=== PATIENT | male | born 1980 | race Caucasian/White ===

== ENCOUNTER 2017-01-24 10:39 | Emergency (ER) | payer OTHER ==
[~2017-01-24] VITALS: Ht 182.9 cm; Wt 80.0 kg
[~2017-01-24 10:39] MED LIST: ADDE15TA PO; CLOB0.055 TOPICAL; MILK140C PO; MULT-65 PO
[2017-01-24 10:52] VITALS: BP 146/73; PULSE 78; RESP 20; TEMP 98.3; O2SAT 99
--- NOTE | 2017-01-24 11:09 | PD ---
HPI Chief Complaint: Psychiatric Symptoms Time Seen by Provider: 10:58 Travel History International Travel<30 days: No Contact w/Intl Traveler<30days: No Traveled to known affect area: No History of Present Illness HPI 36-year-old male presents to the emergency Department under Ac[place]idy act I police for psychiatric evaluation. The patient states he called José Miguel was getting along with the girl he was talking to. He started talking about suicide to her. Apparently, according to the Cassidy act, he told her he was going to hang himself. The patient states that he always states he is going to kill himself. He apparently has told the nurse and the police that he is [place] and related to Alek. The patient denies any current suicidal or homicidal ideation to me. Patient denies any chronic medical problems or taking prescribed medications. He does state that he drank alcohol last night and a couple of glasses of champagne this morning. He does smoke cigarettes. He denies any illicit drug use. Patient is alert and oriented to person, place , time. He has no medical complaints at this time. [facility] Social History Alcohol Use: Yes Tobacco Use: Yes Substance Use: No Allergies-Medications (Allergen,Severity, Reaction): Coded Allergies: No Known Allergies (Unverified , 10/10/16) Reported Meds & Prescriptions Reported Meds & Active Scripts Active Review of Systems Except as stated in HPI: all other systems reviewed are Neg Physical Exam Narrative GENERAL: Well-nourished, well-developed male patient, afebrile. SKIN: Focused skin assessment warm/dry. HEAD: Normocephalic. Atraumatic. EYES: No scleral icterus. No injection or drainage. NECK: Supple, trachea midline. No JVD or lymphadenopathy. CARDIOVASCULAR: Regular rate and rhythm without murmurs, gallops, or rubs. RESPIRATORY: Breath sounds equal bilaterally. No accessory muscle use. Lungs sounds are clear to auscultation. GASTROINTESTINAL: Abdomen soft, non-tender, nondistended. MUSCULOSKELETAL: No cyanosis, or edema. PSYCHIATRIC: No delusional thought processes. No hallucinations. Data Data Last Documented VS Vital Signs Date Time Temp Pulse Resp B/P (MAP) Pulse Ox O2 Delivery O2 Flow Rate FiO2 01/24/17 10:52 98.3 78 20 146/73 (97) 99 Orders Orders Complete Blood Count With Diff (01/24/17 11:09) Comprehensive Metabolic Panel (01/24/17 11:09) Psych Screen (01/24/17 11:09) Drug Screen, Random Urine (01/24/17 11:09) Alcohol (Ethanol) (01/24/17 11:09) Haloperidol Inj (Haldol Inj) (01/24/17 11:15) Lorazepam Inj (Ativan Inj) (01/24/17 11:15) Diet Regular Basic (01/24/17 Lunch) Labs Laboratory Tests Test 01/24/17 11:20 White Blood Count 5.8 TH/MM3 Red Blood Count 4.89 MIL/MM3 Hemoglobin 15.5 GM/DL Hematocrit 44.7 % Mean Corpuscular Volume 91.5 FL Mean Corpuscular Hemoglobin 31.7 PG Mean Corpuscular Hemoglobin Concent 34.6 % Red Cell Distribution Width 12.9 % Platelet Count 201 TH/MM3 Mean Platelet Volume 9.4 FL Neutrophils (%) (Auto) 64.4 % Lymphocytes (%) (Auto) 27.6 % Monocytes (%) (Auto) 6.9 % Eosinophils (%) (Auto) 0.6 % Basophils (%) (Auto) 0.5 % Neutrophils # (Auto) 3.7 TH/MM3 Lymphocytes # (Auto) 1.6 TH/MM3 Monocytes # (Auto) 0.4 TH/MM3 Eosinophils # (Auto) 0.0 TH/MM3 Basophils # (Auto) 0.0 TH/MM3 CBC Comment DIFF FINAL Differential Comment Blood Urea Nitrogen 7 MG/DL Creatinine 1.09 MG/DL Random Glucose 111 MG/DL Total Protein 8.2 GM/DL Albumin 4.4 GM/DL Calcium Level 8.4 MG/DL Alkaline Phosphatase 73 U/L Aspartate Amino Transf (AST/SGOT) 28 U/L Alanine Aminotransferase (ALT/SGPT) 36 U/L Total Bilirubin 0.3 MG/DL Sodium Level 138 MEQ/L Potassium Level 3.9 MEQ/L Chloride Level 101 MEQ/L Carbon Dioxide Level 27.1 MEQ/L Anion Gap 10 MEQ/L Estimat Glomerular Filtration Rate 76 ML/MIN Ethyl Alcohol Level 294 MG/DL [facility] Medical Decision Making Medical Screen Exam Complete: Yes Emergency Medical Condition: Yes Medical Record Reviewed: Yes Differential Diagnosis Medical clearance versus depression versus anxiety versus bipolar disorder versus sepsis abuse versus alcohol intoxication Narrative Course 36-year-old male presents to the emergency Department under Cassidy act by local police. CBC, CMP, alcohol level, urine drug screen are ordered and pending. Patient has become agitated the emergency department. He is given Haldol 5 mg IM. CBC is unremarkable. CMP shows no acute abnormality. Alcohol level is 294. UDS is pending. She is medically cleared for psychiatric screening and disposition. Mental health screening discussed with the patient. Psychiatric screen ordered. Diagnosis Primary Impression: Medical clearance for psychiatric admission Additional Instructions: Patient is medically cleared for psychiatric screening and disposition. Condition: Stable Sirisha Soria Jan 24, 2017 11:09
--- NOTE | 2017-01-24 11:14 | PD ---
Data Data Last Documented VS Vital Signs Date Time Temp Pulse Resp B/P (MAP) Pulse Ox O2 Delivery O2 Flow Rate FiO2 01/24/17 10:52 98.3 78 20 146/73 (97) 99 Orders Orders Complete Blood Count With Diff (01/24/17 11:09) Comprehensive Metabolic Panel (01/24/17 11:09) Psych Screen (01/24/17 11:09) Drug Screen, Random Urine (01/24/17 11:09) Alcohol (Ethanol) (01/24/17 11:09) MDM Supervised Visit with MARGARITO: Yes Narrative Course The history, exam, and medical decision-making in the associated midlevel provider note were completed with my assistance. I reviewed and agree with the findings presented. I attest that I had a [id number] encounter with the patient on the same day, and personally performed and documented my assessment and findings in the medical record. *My assessment and Findings: This is a 36-year-old male who presents to the emergency department under a Cassidy act because he was on the phone with [facility] and started to make suicidal statements to the telephone surveyor. Here in the emergency department he is intermittently but then has some some zoroastrian preoccupation saying that he's poornima Alek. I suspect that the patient has psychosis. He will be evaluated by psychiatry. Hallie Carter MD Jan 24, 2017 11:14
[2017-01-24] MEDS ORDERED: HALOPERIDOL LACTATE 5 MG/ML AMP IM ONE (11:15)
[2017-01-24] MEDS ORDERED: LORazepam 2 MG/ML VIAL IM ONE (11:15)
[2017-01-24 11:56] LABS: AUTOMATED NEUTROPHIL # 3.7 TH/MM3 (1.8-7.7); BASOPHIL % 0.5 % (0.0-2.0); EOSINOPHIL % 0.6 % (0.0-4.0); HEMATOCRIT 44.7 % (39.0-51.0); HEMO FLAGS DIFF FINAL; LYMPH % 27.6 % (9.0-44.0); LYMPHOCYTE # 1.6 TH/MM3 (1.0-4.8); MEAN CELL VOLUME 91.5 FL (80.0-100.0); MEAN CORPUSCULAR HEMOGLOBIN 31.7 PG (27.0-34.0); MEAN CORPUSCULAR HGB CONC 34.6 % (32.0-36.0); MONO % 6.9 % (0.0-8.0); NEUT % 64.4 % (16.0-70.0); PLATELET COUNT 201 TH/MM3 (150-450); RED BLOOD COUNT 4.89 MIL/MM3 (4.50-5.90); RED CELL DISTRIBUTION WIDTH 12.9 % (11.6-17.2); WHITE BLOOD COUNT 5.8 TH/MM3 (4.0-11.0)
[2017-01-24 12:20] LABS: ALKALINE PHOSPHATASE 73 U/L (45-117); TOTAL BILIRUBIN ADULT 0.3 MG/DL (0.2-1.0)
[2017-01-24 12:21] LABS: ALCOHOL 294 MG/DL (0-5)
[2017-01-24 12:29] LABS: ALT (GPT) 36 U/L (12-78); ANION GAP 10 MEQ/L (5-15); AST (GOT) 28 U/L (15-37); BICARBONATE 27.1 MEQ/L (21.0-32.0); BLOOD UREA NITROGEN 7 MG/DL (7-18); CHLORIDE 101 MEQ/L (98-107); GLOMERULAR FILTRATION RATE 76 ML/MIN (>89); POTASSIUM 3.9 MEQ/L (3.5-5.1); SODIUM (NA) 138 MEQ/L (136-145)
[2017-01-24 17:52] VITALS: BP 139/84; PULSE 100; RESP 18; O2SAT 96
[2017-01-24 22:53] VITALS: BP 135/99; PULSE 55; RESP 18; O2SAT 97
[2017-01-24] MEDS ORDERED: NICOTINE 14 MG/24 HR PATCH T-DERMAL ONE (23:30)
[2017-01-25 06:48] VITALS: BP 154/88; PULSE 80; RESP 18; O2SAT 98
--- NOTE | 2017-01-25 09:55 | PD ---
History of Present Illness Chief Complaint: Psychiatric Symptoms Time Seen by Provider: 09:40 Travel History International Travel<30 Days: No Contact w/Intl Traveler<30days: No Known affected area: No Legal Status Legal Status: Cassidy Act Cassidy Act Signed By: Teressa Oliver History of Present Illness: History of Present Illness HPI 36-year-old male with no previous psychiatric presents to the emergency Department under Cassidy act initiated by police for psychiatric evaluation for having expressed suicidal ideation in context of an argument with his girlfriend and while intoxicated. His BAl on admission to ED was 294. The patient states he called José Miguel and that while in a conversation with the charter representative he started talking about suicide to her.She called the police and he was placed under a BA. Patient seen. EMR reviewed, No previous contact with [facility]. He is a young male who appears stated age. He is clinically sober. Dressed in [facility] and maintaining basic hygiene. His speech is clear. There is no evidence of any psychosis, no iza and no suicdal or homicidal ideation. He states " There was a huge misunderstanding and I was drinking way too much. I have dealt with much worse things. It was an overreaction. Denies any suicidal or homicidal ideation, intent or plan. He does not present any objective clinical symptoms of depression. He denies that he drinks on a daily basis. Patient is also concerned over his cat who was taken to the [facility] when he was placed under the BA Telephone call to his parents with his consent at [phone]. Spoke with his mother. She has no concerns for his safety if he is discharged and will pick him up. Psychiatric History Psychiatric History Hx Psychiatric Treatment: DENIED any History of Inpatient Treatment: No Guns or firearms in home: No Social History Single male. Lives by him self. He works for [employer] Hx Alcohol Use: Yes Hx Tobacco Use: Yes Hx Substance Use: Yes Substance Use Type: Alcohol Other Substances Used: BINGING FOR 2 WEEKS AFTER 2 MONTHS SOBER Hx of Substance Use Treatment: No Family Psychiatric History denies any Allergies-Medications (Allergen,Severity, Reaction): Coded Allergies: No Known Allergies (Unverified , 10/10/16) Reported Meds & Prescriptions Reported Meds & Active Scripts Active Review of Systems Except as stated in HPI: all other systems reviewed are Neg Exam Alert: Yes [place]: Person (ox4) Mood: Calm Affect: Appropriate Speech: Clear, Logical Eye Contact: Normal Memory Intact: Comment (No impairmetn) Delusions: No Suicidal: Ideation (deneis any) Homicidal: Ideation (deneis any) Insight/Judgement Fair. Not impaired. MDM Medical Decision Making Medical Record Reviewed: Yes Assessment/Plan 36-year-old male with no previous psychiatric presents to the emergency Department under Cassidy act initiated by police for psychiatric evaluation for having expressed suicidal ideation in context of an argument with his girlfriend and while intoxicated. Patient at this time is clinically sober and does not present any psychosis, no iza and no objective clinical symptom of depression. He is future oriented and has adequate protective factors and adequate family support. The patient is requesting discharge and he does not meet criteria for BA. The BA is lifted and he is cleared for discharge from psychiatry. Orders Orders Complete Blood Count With Diff (01/24/17 11:09) Comprehensive Metabolic Panel (01/24/17 11:09) Psych Screen (01/24/17 11:09) Drug Screen, Random Urine (01/24/17 11:09) Alcohol (Ethanol) (01/24/17 11:09) Haloperidol Inj (Haldol Inj) (01/24/17 11:15) Lorazepam Inj (Ativan Inj) (01/24/17 11:15) Diet Regular Basic (01/24/17 Lunch) Diet Regular Basic (01/24/17 Dinner) Nicotine 14 Mg Patch.24 Hr (Habitrol 14 (01/24/17 23:30) Diet Regular Basic (01/25/17 Breakfast) Results Vital Signs Date Time Temp Pulse Resp B/P (MAP) Pulse Ox O2 Delivery O2 Flow Rate FiO2 01/25/17 06:48 80 18 154/88 (110) 98 01/24/17 22:53 55 18 135/99 (111) 97 01/24/17 17:52 100 18 139/84 (102) 96 Room Air 01/24/17 10:52 98.3 78 20 146/73 (97) 99 Laboratory Tests Test 01/24/17 11:20 01/24/17 19:10 White Blood Count 5.8 Red Blood Count 4.89 Hemoglobin 15.5 Hematocrit 44.7 Mean Corpuscular Volume 91.5 Mean Corpuscular Hemoglobin 31.7 Mean Corpuscular Hemoglobin Concent 34.6 Red Cell Distribution Width 12.9 Platelet Count 201 Mean Platelet Volume 9.4 Neutrophils (%) (Auto) 64.4 Lymphocytes (%) (Auto) 27.6 Monocytes (%) (Auto) 6.9 Eosinophils (%) (Auto) 0.6 Basophils (%) (Auto) 0.5 Neutrophils # (Auto) 3.7 Lymphocytes # (Auto) 1.6 Monocytes # (Auto) 0.4 Eosinophils # (Auto) 0.0 Basophils # (Auto) 0.0 CBC Comment DIFF FINAL Differential Comment Blood Urea Nitrogen 7 Creatinine 1.09 Random Glucose 111 Total Protein 8.2 Albumin 4.4 Calcium Level 8.4 Alkaline Phosphatase 73 Aspartate Amino Transf (AST/SGOT) 28 Alanine Aminotransferase (ALT/SGPT) 36 Total Bilirubin 0.3 Sodium Level 138 Potassium Level 3.9 Chloride Level 101 Carbon Dioxide Level 27.1 Anion Gap 10 Estimat Glomerular Filtration Rate 76 Ethyl Alcohol Level 294 Urine Opiates Screen NEG Urine Barbiturates Screen NEG Urine Amphetamines Screen NEG Urine Benzodiazepines Screen NEG Urine Cocaine Screen NEG Urine Cannabinoids Screen NEG Diagnosis Primary Impression: Alcohol intoxication Additional Impression: Adjustment disorder Psychiatrically Cleared: Yes Additional Instructions: Patient is medically cleared for psychiatric screening and disposition. Med/ Other Pt Specific Info: No Meds Exist/No RX given Disposition: 01 DISCHARGE HOME Condition: Stable Problem Qualifiers Kassandra Mchugh Jan 25, 2017 09:55
[2017-01-25 10:28] VITALS: BP 153/71; PULSE 81; RESP 18; O2SAT 98
--- NOTE | 2017-01-25 10:28 | PD ---
Physical Exam Time Seen by Provider: 10:24 Narrative I discussed the patient [id number] with ANASTASIA Cannon, who has evaluated the patient and lifted the Cassidy act. He has good family support and the mother is aware of the situation and has no concerns. The patient was intoxicated and is now clinically sober. The patient has no psych history, denies suicidal or homicidal ideations. Data Data Last Documented VS Vital Signs Date Time Temp Pulse Resp B/P (MAP) Pulse Ox O2 Delivery O2 Flow Rate FiO2 01/25/17 06:48 80 18 154/88 (110) 98 01/24/17 17:52 Room Air 01/24/17 10:52 98.3 Orders Orders Complete Blood Count With Diff (01/24/17 11:09) Comprehensive Metabolic Panel (01/24/17 11:09) Psych Screen (01/24/17 11:09) Drug Screen, Random Urine (01/24/17 11:09) Alcohol (Ethanol) (01/24/17 11:09) Haloperidol Inj (Haldol Inj) (01/24/17 11:15) Lorazepam Inj (Ativan Inj) (01/24/17 11:15) Diet Regular Basic (01/24/17 Lunch) Diet Regular Basic (01/24/17 Dinner) Nicotine 14 Mg Patch.24 Hr (Habitrol 14 (01/24/17 23:30) Diet Regular Basic (01/25/17 Breakfast) Labs Laboratory Tests Test 01/24/17 11:20 01/24/17 19:10 White Blood Count 5.8 TH/MM3 Red Blood Count 4.89 MIL/MM3 Hemoglobin 15.5 GM/DL Hematocrit 44.7 % Mean Corpuscular Volume 91.5 FL Mean Corpuscular Hemoglobin 31.7 PG Mean Corpuscular Hemoglobin Concent 34.6 % Red Cell Distribution Width 12.9 % Platelet Count 201 TH/MM3 Mean Platelet Volume 9.4 FL Neutrophils (%) (Auto) 64.4 % Lymphocytes (%) (Auto) 27.6 % Monocytes (%) (Auto) 6.9 % Eosinophils (%) (Auto) 0.6 % Basophils (%) (Auto) 0.5 % Neutrophils # (Auto) 3.7 TH/MM3 Lymphocytes # (Auto) 1.6 TH/MM3 Monocytes # (Auto) 0.4 TH/MM3 Eosinophils # (Auto) 0.0 TH/MM3 Basophils # (Auto) 0.0 TH/MM3 CBC Comment DIFF FINAL Differential Comment Blood Urea Nitrogen 7 MG/DL Creatinine 1.09 MG/DL Random Glucose 111 MG/DL Total Protein 8.2 GM/DL Albumin 4.4 GM/DL Calcium Level 8.4 MG/DL Alkaline Phosphatase 73 U/L Aspartate Amino Transf (AST/SGOT) 28 U/L Alanine Aminotransferase (ALT/SGPT) 36 U/L Total Bilirubin 0.3 MG/DL Sodium Level 138 MEQ/L Potassium Level 3.9 MEQ/L Chloride Level 101 MEQ/L Carbon Dioxide Level 27.1 MEQ/L Anion Gap 10 MEQ/L Estimat Glomerular Filtration Rate 76 ML/MIN Ethyl Alcohol Level 294 MG/DL Urine Opiates Screen NEG Urine Barbiturates Screen NEG Urine Amphetamines Screen NEG Urine Benzodiazepines Screen NEG Urine Cocaine Screen NEG Urine Cannabinoids Screen NEG MDM Supervised Visit with MARGARITO: No Narrative Course I had [id number] report with ANASTASIA Cannon who evaluated the patient and lifted the Cassidy act. The patient denies suicidal or homicidal ideations. He has good family support and the mother is aware of the situation and has no concern. His family is here and waiting on him to be discharged home. He was intoxicated and is now clinically sober. I agree with Kassandra's decision to discharge the patient home. Diagnosis Primary Impression: Alcohol intoxication Additional Impressions: Medical clearance for psychiatric admission Adjustment disorder Referrals: Primary Care Physician [facility] Patient Instructions: Abuse of Alcohol (ED), Alcohol Dependence (ED), Alcohol Intoxication (ED), General Instructions, Mood Disorders (ED) Additional Instruction: Stop drinking alcohol Follow-up with primary care provider Return to the emergency department immediately with worsening of symptoms Med/Other Pt SpecificInfo: No Meds Exist/No RX given Disposition: DISCHARGE HOME Condition: Stable Juliette Cook Jan 25, 2017 10:28
[2017-02-11] MEDS ORDERED: ADDE15TA PO (20:56)
[2017-03-12] MEDS ORDERED: ADDE15TA PO (10:18)
== END 2017-01-25 10:37 | disposition home or self-care (01) ==
LOC: NEPD 10:39 → NEPJ 01-25 10:37
DX: Z02.89 Encounter for other administrative examinations (principal); F10.929 Alcohol use, unspecified with intoxication, unspecified; F43.20 Adjustment disorder, unspecified; Z72.0 Tobacco use
CPT/HCPCS: 80053; 80307; 85025; 96372; 99284; J1630; J2060